=== PATIENT | male | born 1960 | race African-American/Black ===

== ENCOUNTER 2017-04-19 10:45 | Emergency (ER) | payer OTHER ==
[~2017-04-19] VITALS: Ht 167.6 cm; Wt 113.4 kg
[~2017-04-19 10:45] MED LIST: ANUSOL HC30 GM TOP; ATENOLOL25 MG PO; DRISDOL50000 IU PO; FOLIC ACID 1 MG PO; PEPCID 20MG TAB20 MG PO; Senokot S PO; VITAMIN B1100 MG PO
[2017-04-19 10:54] VITALS: BP 128/87
[2017-04-19 11:15] LABS: ABSOLUTE BASOPHIL COUNT 0 /CUMM (0.0-0.2); ABSOLUTE EOSINOPHIL COUNT 0.2 /CUMM (0.0-0.7); ABSOLUTE GRANULOCYTE CT 2.3 /CUMM (1.4-6.5); ABSOLUTE LYMPH COUNT 3.3 /CUMM (1.2-3.4); ABSOLUTE MONOCYTE COUNT 0.7 /CUMM (0.10-0.60); BASOPHIL % 0.6 % (0.0-2.0); GRANULOCYTE % 35.2 % (42.2-75.2); HEMATOCRIT 30.6 % (42-52); MEAN CORPUSCULAR HGB 30.9 PG (27.0-31.0); MEAN CORPUSCULAR HGB CONC 33.2 G/DL (33.0-37.0); MEAN CORPUSCULAR VOLUME 92.9 FL (80.0-94.0); MEAN PLATELET VOLUME 8.4 FL (7.4-10.4); PLATELET COUNT 64 /CUMM (130-400); RBC DISTRIBUTION WIDTH 20.8 % (11.5-14.5); RED BLOOD CELL CT 3.29 /CUMM (4.70-6.10); WHITE BLOOD CELL COUNT 6.6 /CUMM (4.8-10.8)
--- NOTE | 2017-04-19 11:46 | ED AMS/SEIZURE/WEAK/DIZZY ---
History of Present Illness General Chief Complaint: Dizziness Stated Complaint: DIZZINESS Source: patient, EMS Exam Limitations: clinical condition Vital Signs & Intake/Output Vital Signs & Intake/Output Vital Signs Date Time Temp Pulse Resp B/P B/P Pulse O2 O2 Flow FiO2 Mean Ox Delivery Rate 04/19 1054 97.7 88 16 128/87 97 Room Air Allergies Coded Allergies: NO KNOWN ALLERGIES (05/18/15) Reconcile Medications Atenolol 25 MG TABLET 1 TAB PO DAILY BP (Reported) ERGOCALCIFEROL (VITAMIN D2) (Drisdol) 50,000 IU SGL 50,000 IU PO ONCE A WEEK supplement Famotidine (Pepcid 20MG Tab) 20 MG TAB 20 MG PO DAILY gerd Folic Acid 1 MG TAB 1 MG PO 8AM supplement Hydrocortisone (Anusol HC) 30 GM CRM 1 CHERRIE TOP DAILY NEEDED PRN HEMORROIDS [Senokot S] 1 TAB PO BID PRN CONSTIPATION Thiamine (Vitamin B1) 100 MG TAB 100 MG PO 8AM supplemement Triage Note: PT BIBA FROM SIDE OF STREET. PT WAS FOUND LYING ON THE SIDE OF THE ROAD DENIES FALLING. PT STATES HE FELT DIZZY AND JUST SAT DOWN. PT SMELLS + FOR ETOH. PT KNOW STATES HE DOES NOT KNOW IF HE FELL. STATES HE WAS WALKING TO STOP AND SHOP AND THAT IS ALL HER REMEMBERS. PT DENIES ETOH TODAY. Triage Nurses Notes Reviewed? yes HPI: Patient is a 56 YO M with PMH of HTN, recurrent falls BIBA to the ER after found to be lethargic and unconsious on the side walk of street. Patient is alert and oriented by the time he came to ER. He appears lethargic, somnolent, smells alcohol, denies any food or alcohol consumption. He appears unreliable, denies any dizziness, lightheadedness, chest pain, palpitations. He reports feeling shaking but denies any jerky movements. He remained on floor by the time EMS arrived. He denies any head strike with falling. He reports spasms on his legs, usually makes his walking much worse. He tried physical therapy with improvement. (WAGNER ROONEY,RADHA) Past History Travel History Traveled to [place] past 21 day No Medical History Neurological: NONE EENT: hearing loss Cardiovascular: hypertension Respiratory: NONE Gastrointestinal: alcoholic hepatitis, Hepatitis B Hepatic: NONE Renal: NONE Musculoskeletal: falls Psychiatric: NONE Endocrine: NONE Blood Disorders: NONE Cancer(s): NONE SHOE CLERK/Reproductive: NONE History of MRSA: No History of VRE: No History of CDIFF: No Surgical History Surgical History: N Psychosocial History Who do you live with Mother What is your primary language Danish Tobacco Use: Never used ETOH Use: alcoholic Illicit Drug Use: denies illicit drug use Family History Family History, If Any: MOTHER Hypertension SISTER Hypertension FATHER Hypertension FATHER (RADHA EDWARD MD) Medical History Any Pertinent Medical History? see below for history Family History Hx Contributory? No (KAREN JUNIOR MD) Review of Systems Review of Systems Constitutional: Reports: see HPI. (RADHA EDWARD MD) Review of Systems Constitutional: Reports: no symptoms. EENTM: Reports: no symptoms. Respiratory: Reports: no symptoms. Cardiovascular: Reports: no symptoms. GI: Reports: no symptoms. Genitourinary: Reports: no symptoms. Musculoskeletal: Reports: no symptoms. Skin: Reports: no symptoms. Neurological/Psychological: Reports: no symptoms. Hematologic/Endocrine: Reports: no symptoms. Immunologic/Allergic: Reports: no symptoms. All Other Systems: Reviewed and Negative (KAREN JUNIOR MD) Physical Exam Physical Exam General Appearance: well developed/nourished, alert, awake Head: atraumatic, normal appearance Eyes: Bilateral: other (SLUGGISH). Ears, Nose, Throat: normal pharynx, normal ENT inspection, hearing grossly normal Neck: normal inspection, supple, full range of motion Respiratory: normal breath sounds, chest non-tender, no respiratory distress, lungs clear Cardiovascular: regular rate/rhythm, normal peripheral pulses Gastrointestinal: normal bowel sounds, soft, non-tender Back: normal inspection, normal range of motion Extremities: normal range of motion Neurologic/Psych: no motor/sensory deficits, awake, alert, oriented x 3, normal gait Skin: intact, normal color, warm/dry Lymphatic: no anterior cervical karissa Core Measures ACS in differential dx? No CVA/TIA Diagnosis: No Severe Sepsis Present: No Septic Shock Present: No (KAREN JUNIOR MD) Progress Hand-Off Endorsed To: KAREN JUNIOR MD (RADHA EDWARD MD) Differential Diagnosis: alcohol intoxication, dehydration, drug intoxication Plan of Care: Orders Procedure Date/time Status Regular Diet 04/19 D Active CIWA 04/19 1229 Active ETHANOL 04/19 1056 Complete COMPREHENSIVE METABOLIC PANEL 04/19 1056 Complete CBC WITHOUT DIFFERENTIAL 04/19 1056 Complete Laboratory Tests 04/19/17 1104: Anion Gap 10, Estimated GFR > 60, BUN/Creatinine Ratio 13.6, Glucose 100 H, Calcium 8.6, Total Bilirubin 1.0, AST 105 H, ALT 59, Alkaline Phosphatase 123, Total Protein 7.4, Albumin 3.5, Globulin 3.9, Albumin/Globulin Ratio 0.9 L, CBC w Diff MAN DIFF ORDERED, RBC 3.29 L, MCV 92.9, MCH 30.9, RDW 20.8 H, MPV 8.4, Gran % 35.2 L, Lymphocytes % 50.3, Monocytes % 10.9 H, Eosinophils % 3.0, Basophils % 0.6, Absolute Granulocytes 2.3, Absolute Lymphocytes 3.3, Absolute Monocytes 0.7 H, Absolute Eosinophils 0.2, Absolute Basophils 0, Platelet Estimate DECREASED, Polychromasia 1+, Poikilocytosis 1+, Anisocytosis 2+, Target Cells 1+, Stomatocytes 1+, PUBS MCHC 33.2, Serum Alcohol 277.0 Initial ED EKG: none (SANDI ROONEY,KAREN Mosley) Departure Departure Condition: Stable Referrals: VIRGILIO VITAL APRN (PCP/Family) Departure Forms: Customer Survey General Discharge Information (WAGNER ROONEY,RADHA) Departure Disposition: HOME OR SELF CARE Clinical Impression Primary Impression: Alcohol intoxication Qualifiers: Complication of substance-induced condition: uncomplicated Qualified Code: F10.920 - Alcohol use, unspecified with intoxication, uncomplicated Resident Co-Sign Statement Statement: ED Attending supervision documentation- [X] I saw and evaluated the patient. I have also reviewed all the pertinent lab results and diagnostic results. I agree with the findings and the plan of care as documented in the Resident's documentation. [X] I have reviewed the ED Record and agree with the Resident's documentation. [] Additions or exceptions (if any) to the Resident's note and plan are summarized below: [Personally seen and examined this patient. However the above-noted agree with what has been written. Patient presents after a fall today. Patient denies any injury. Patient found to be intoxicated. He does not want to stay for alcohol detox. Patient denies any suicidal or homicidal ideations. Patient was walking on the emergency department without difficulty. Patient held for sobriety.] (SANDI ROONEY,KAREN Mosley) ED Attending Observation Initial Observation Note: I have seen and personally examined KELSEY ROWAN JR on 04/19/17 at 1516. I agree with the current emergency department documentation. The disposition (admission or discharge) is uncertain at this time, he needs a period of observation for the following reason(s): The ED Nurse caring for this patient has been personally informed as to what the patient is being observed for. (WAGNER ROONEY,RADHA)
== END 2017-04-19 14:00 ==
LOC: ERH 10:45
PROVIDERS: Emergency Medicine
DX: F10.129 Alcohol abuse with intoxication, unspecified (principal)
CPT/HCPCS: G0480